=== PATIENT | male | born 1995 ===

== ENCOUNTER 2022-12-06 13:32 | Emergency (ER) | payer OTHER ==
[~2022-12-06] VITALS: Ht 152.4 cm; Wt 61.7 kg
[~2022-12-06 13:32] MED LIST: CEPH500 PO
[2022-12-06 14:01] VITALS: BP 138/78
== END 2022-12-06 14:47 | disposition home or self-care (01) ==
LOC: ER 13:32
DX: S91.115D Laceration without foreign body of left lesser toe(s) without damage to nail, subsequent encounter (principal); Z48.02 Encounter for removal of sutures; X58.XXXD Exposure to other specified factors, subsequent encounter
CPT/HCPCS: 99281